=== PATIENT | female | born 1970 | race Caucasian/White ===

== ENCOUNTER 2019-02-11 04:21 | Emergency (ER) | payer BC ==
[~2019-02-11] VITALS: Ht 162.6 cm; Wt 87.9 kg
[2019-02-11 04:24] VITALS: Ht 162.6 cm; Wt 87.9 kg
[2019-02-11] MEDS ORDERED: MUPIROCIN 2% 22 GM OINT TOP ONE (05:00)
--- NOTE | 2019-02-11 05:19 | ERD ---
ER Documentation Chief Complaint Chief Complaint Pt reports hx Bartholin gland cyst and sts it is back HPI 49-year-old female, with history of a Bartholin abscess, presents to the emergency department, complaining of left labia a small tender lump for 3 days. The patient denies fevers, no chills, no vaginal discharge, no dysuria, no abdominal pain. ROS All systems reviewed and are negative except as per history of present illness. Medications Home Meds Active Scripts Ibuprofen* (Motrin*) 400 Mg Tab, 400 MG PO Q8, #30 TAB Prov:YOBANY WOLFE MD 02/11/19 Doxycycline Hyclate* (Doxycycline Hyclate*) 100 Mg Tablet.dr, 100 MG PO BID for 7 Days, TAB Prov:YOBANY WOLFE MD 02/11/19 Allergies Allergies: Coded Allergies: No Known Allergy (Unverified , 02/11/19) FmHx Family History: No diabetes, No coronary disease Physical Exam Vitals Vital Signs Date Temp Pulse Resp B/P (MAP) Pulse Ox O2 O2 Flow FiO2 Time Delivery Rate 02/11/19 98.3 77 16 131/88 99 04:24 (102) Physical Exam Const: No acute distress Head: Atraumatic Eyes: Normal Conjunctiva ENT: Normal External Ears, Nose and Mouth. Neck: Full range of motion. No meningismus. Resp: Clear to auscultation bilaterally Cardio: Regular rate and rhythm, no murmurs Abd: Soft, non tender, non distended. Normal bowel sounds : External genitalia with 1 cm tender lump on the left Bartholin gland, no fluctuance. Skin: No petechiae or rashes Back: No midline or flank tenderness Ext: No cyanosis, or edema Neur: Awake and alert Psych: Normal Mood and Affect Results 24 hrs Current Medications Medications Dose Sig/[place] Start Time Status Last (Trade) Ordered Route PRN Stop Time Admin Dose Reason Admin Mupirocin 1 applic ONCE ONCE 02/11/19 DC 02/11/19 (Bactroban) TOP 05:00 02/11/19 05:19 05:01 Procedures/MDM At the time of discharge vital signs stable, differential diagnosis include but not limited to: Cellulitis, Bartholin abscess, abscess, viral warts, perianal abscess. Low suspicion for acute systemic infection Physical examination and clinical presentation consistent most likely with Bartholin gland infection without evidence of abscess. During the ED course the patient remained stable, no new complaints. The patient received treatment with mupirocin. The patient was advised to return for worsening of symptoms, fever or persistent discomfort. The patient was instructed to follow up with the primary care provider in the next 48h. If symptoms persist, worsen or new symptoms develop, then patient should return to the ED immediately. Instructions explained and given directly by me to the patient in Bulgarian with acknowledgment and demonstrated understanding. Disclaimer: Inadvertent spelling and grammatical errors are likely due to EHR/dictation software use and do not reflect on the overall quality of patient care. Also, please note that the electronic time recorded on this note does not necessarily reflect the actual time of the patient encounter. Departure Diagnosis: Primary Impression: Bartholin's gland infection Condition: Stable Additional Instructions: Muchas gilles por [facility] para estrella servicio. Esperamos que en estrella visita a la lalo de emergencia estrella problema medico haya sido solucionado y que se sienta mucho mejor. Para estar seguros que estrella mejoria sigue en proceso, le pedimos el favor de hacer carley jenny de seguimiento medico con estrella doctor primario en los proximos 2-4 barth. Lleve con usted estos documentos y las medicinas recetadas. Si [place], NO SE ESPERE, por favor regrese a lalo de emergencia INMEDIATAMENTE. En aden que usted no tenga un mdico de atencin primaria: Llame al mdico o clnica comunitaria de referencia que aparece abajo vonda las horas de consultorio para hacer carley jenny para que le vean. CLINICAS: [facility] [phone] [id number] [facility] 119 [phone] [id number] [facility] [phone] [id number] [place] [phone] [facility] [phone] [id number] [facility] [phone] YOBANY BOYER MD Feb 11, 2019 05:19
[2019-02-11] MEDS ORDERED: DOXY100T20 PO (05:20)
[2019-02-11] MEDS ORDERED: IBUP-1561 PO (05:21)
== END 2019-02-11 05:39 | disposition home or self-care (01) ==
LOC: FTE 04:21
DX: N75.0 Cyst of Bartholin's gland (principal); L08.9 Local infection of the skin and subcutaneous tissue, unspecified
CPT/HCPCS: 99283; Z7610